=== PATIENT | male | born 1950 | race African-American/Black ===

== ENCOUNTER 2017-07-17 05:27 | Emergency (ER) | payer MEDICARE ==
[~2017-07-17] VITALS: Ht 167.6 cm; Wt 91.0 kg
[~2017-07-17 05:27] MED LIST: FOLIC ACID; OXYCOTIN
[2017-07-17] MEDS ORDERED: MORPHINE SULFATE 4 MG/ML CPJ (NOT FOR IM USE) IV STA (06:10)
[2017-07-17] MEDS ORDERED: SODIUM CHLORIDE 0.9% 1,000 ML IV ONE (06:10)
[2017-07-17] MEDS ORDERED: ONDANSETRON HCL 4MG/2ML VIAL IV STA (06:10)
[2017-07-17] MEDS ORDERED: KETOROLAC 30MG/ML VIAL IV STA (06:10)
[2017-07-17 06:42] LABS: HEMATOCRIT. 34.9 % (42.0-52.0); HEMOGLOBIN. 12.1 g/dL (14.0-18.0); MEAN CORPUSCULAR HEMOGLOBIN 27.5 pg (28.0-32.0); MEAN CORPUSCULAR VOLUME 79.1 fL (80.0-94.0); MEAN PLATELET VOLUME 9.5 fl (7.4-10.4); RED BLOOD CELL COUNT 4.42 mill/uL (4.7-6.1); RED CELL DISTRIBUTION WIDTH 14.6 % (11.6-14.6)
[2017-07-17 06:43] LABS: PLATELET 255 x1000/uL (130-400)
[2017-07-17 06:52] LABS: PROTHROMBIN TIME 10.6 sec (9.4-11.6)
[2017-07-17 07:00] LABS: CHLORIDE 111 mEq/L (98-107)
[2017-07-17 07:27] LABS: PLATELET ESTIMATE NORMAL
[2017-07-17 09:05] LABS: CLARITY URINE CLEAR (CLEAR); COLOR URINE YELLOW (YELLOW); KETONES URINE NEGATIVE (NEGATIVE); LEUKOCYTE ESTERASE URINE NEGATIVE (NEGATIVE); NITRITE URINE NEGATIVE (NEGATIVE); OCCULT BLOOD URINE NEGATIVE (NEGATIVE); PROTEIN URINE NEGATIVE (NEGATIVE); SPECIFIC GRAVITY URINE 1.015 (1.005-1.030)
[2017-07-17 11:03] VITALS: BP 125/72
== END 2017-07-17 11:11 | disposition home or self-care (01) ==
LOC: ER 05:27
DX: D57.00 Hb-SS disease with crisis, unspecified (principal); D64.9 Anemia, unspecified
CPT/HCPCS: 36415; 71045; 73130; 80053; 81003; 83880; 84484; 85025; 85044; 85610; 87804; 93005; 96361; 96374; 96375; 99285; C1893; J1885; J2270; J2405; J7030

== ENCOUNTER 2020-08-16 05:28 | Emergency (ER) | payer OTHER ==
[~2020-08-16] VITALS: Ht 167.6 cm; Wt 82.0 kg
[~2020-08-16 05:28] MED LIST changes: -FOLIC ACID; +FOLIC ACID PO
[2020-08-16] MEDS ORDERED: MORPHINE SULFATE 4 MG/ML CPJ (NOT FOR IM USE) IV STA (06:17)
[2020-08-16] MEDS ORDERED: SODIUM CHLORIDE 0.9% 1,000 ML IV ONE (06:30)
[2020-08-16 06:39] LABS: HEMATOCRIT. 31.1 % (42.0-52.0); HEMOGLOBIN. 10.9 g/dL (14.0-18.0); MEAN CORPUSCULAR HEMOGLOBIN 27.8 pg (28.0-32.0); MEAN CORPUSCULAR VOLUME 79.5 fL (80.0-94.0); RED BLOOD CELL COUNT 3.92 mill/uL (4.7-6.1); RED CELL DISTRIBUTION WIDTH 14.5 % (11.6-14.6)
[2020-08-16 06:45] LABS: CHLORIDE 106 mEq/L (98-107)
[2020-08-16 07:06] LABS: PLATELET ESTIMATE NORMAL
[2020-08-16 07:10] LABS: PLATELET 218 x1000/uL (130-400)
[2020-08-16] MEDS ORDERED: BENZ-16 PO (08:42)
[2020-08-16] MEDS ORDERED: GUAI-996 PO (08:42)
[2020-08-16 09:01] VITALS: BP 119/61
== END 2020-08-16 09:03 | disposition home or self-care (01) ==
LOC: ER 05:28
DX: D57.00 Hb-SS disease with crisis, unspecified (principal); R03.0 Elevated blood-pressure reading, without diagnosis of hypertension; E83.51 Hypocalcemia; E80.7 Disorder of bilirubin metabolism, unspecified
CPT/HCPCS: 36415; 71045; 80053; 83880; 84484; 85025; 85660; 93005; 96361; 96374; 99285; J2270; J7030

== ENCOUNTER 2020-08-18 13:59 | Inpatient (IN) | payer OTHER ==
[~2020-08-18] VITALS: Ht 167.6 cm; Wt 92.2 kg
[~2020-08-18 13:59] MED LIST changes: +BENZ-16 PO; +GUAI-996 PO
[2020-08-18 16:41] LABS: HEMATOCRIT. 31.9 % (42.0-52.0); HEMOGLOBIN. 10.9 g/dL (14.0-18.0); MEAN CORPUSCULAR HEMOGLOBIN 26.6 pg (28.0-32.0); MEAN CORPUSCULAR VOLUME 78.3 fL (80.0-94.0); MEAN PLATELET VOLUME 9.9 fl (7.4-10.4); PLATELET 218 x1000/uL (130-400); RED BLOOD CELL COUNT 4.08 mill/uL (4.7-6.1); RED CELL DISTRIBUTION WIDTH 15.2 % (11.6-14.6)
[2020-08-18 16:43] LABS: CHLORIDE 102 mEq/L (98-107)
[2020-08-18] MEDS ORDERED: ACETAMINOPHEN 325MG TABLET PO STA (17:06)
[2020-08-18 17:23] LABS: PLATELET ESTIMATE NORMAL
[2020-08-18 17:43] LABS: CLARITY URINE CLEAR (CLEAR); COLOR URINE DK YELLOW (YELLOW); KETONES URINE NEGATIVE (NEGATIVE); LEUKOCYTE ESTERASE URINE TRACE (NEGATIVE); NITRITE URINE NEGATIVE (NEGATIVE); OCCULT BLOOD URINE NEGATIVE (NEGATIVE); PROTEIN URINE TRACE (NEGATIVE); SPECIFIC GRAVITY URINE 1.014 (1.005-1.030); UROBILINOGEN URINE >=8.0 E.U./dL (0.2-1.0)
[2020-08-18 21:30] VITALS: BP 126/55
[2020-08-18] MEDS ORDERED: OMEP40CA12 PO (21:48)
[2020-08-18] MEDS ORDERED: GABA-532 PO (21:48)
[2020-08-19] VITALS: BP 138/69
[2020-08-19] MEDS: MORPHINE SULFATE 2 MG/ML CPJ (NOT FOR IM USE) IV PRN (00:44)
[2020-08-19] MEDS: SODIUM CHLORIDE 0.9% 1,000 ML IV SCH ×2 (00:45→14:20)
[2020-08-19 01:38] LABS: CREATINE KINASE 118 IU/L (39-308)
[2020-08-19 01:39] LABS: CREATINE KINASE MB FRACTION 1.1 ng/mL (0.5-3.6)
[2020-08-19 04:00] VITALS: BP 141/60
[2020-08-19 07:05] LABS: CHLORIDE 102 mEq/L (98-107)
[2020-08-19 07:07] LABS: HEMATOCRIT. 31.8 % (42.0-52.0); HEMOGLOBIN. 11.1 g/dL (14.0-18.0); MEAN CORPUSCULAR HEMOGLOBIN 26.9 pg (28.0-32.0); MEAN CORPUSCULAR VOLUME 77.1 fL (80.0-94.0); RED BLOOD CELL COUNT 4.13 mill/uL (4.7-6.1); RED CELL DISTRIBUTION WIDTH 15.2 % (11.6-14.6)
[2020-08-19 07:19] LABS: HDL CHOLESTEROL 52 mg/dL (40-59)
[2020-08-19 07:22] LABS: LDL CHOLESTEROL 60 mg/dL (5-100)
[2020-08-19 08:00] VITALS: BP 127/65
[2020-08-19 08:23] LABS: CREATINE KINASE 122 IU/L (39-308); CREATINE KINASE MB FRACTION < 1.0 ng/mL (0.5-3.6)
[2020-08-19] MEDS: HYDROCODONE/ACETAMINOPHEN 10/325MG TABLET PO PRN ×2 (08:40→18:35)
[2020-08-19] MEDS: LOSARTAN POTASSIUM 50 MG TABLET PO SCH (08:40)
[2020-08-19] MEDS: FERROUS SULFATE 325MG TABLET PO SCH (08:40)
[2020-08-19] MEDS: OMEPRAZOLE 20MG CAPSULE EXTENDED RELEASE PO SCH (08:41)
[2020-08-19 09:06] LABS: PLATELET 219 x1000/uL (130-400)
[2020-08-19 09:11] LABS: ATYPICAL LYMPHOCYTES 1
[2020-08-19 09:12] LABS: PLATELET ESTIMATE NORMAL
[2020-08-19 12:00] VITALS: BP 121/56
[2020-08-19 16:00] VITALS: BP 130/60
[2020-08-19] MEDS: BENZONATATE 100MG CAPSULE PO PRN (18:31)
[2020-08-19] MEDS ORDERED: METHYLPREDNISOLONE SOD SUCC 125 MG/2 ML VIAL IV NR (18:55)
[2020-08-19] MEDS ORDERED: ACETAMINOPHEN 325MG TABLET PO PRN (19:00)
[2020-08-19 20:00] VITALS: BP 124/56
[2020-08-19] MEDS: LEVOFLOXACIN 500MG PREMIX 100 ML IV SCH (20:14)
[2020-08-19] MEDS: ALBUTEROL 6.7GM HFA INHALER ORI SCH (21:15)
[2020-08-20] VITALS: BP 104/56
[2020-08-20] MEDS: ALBUTEROL 6.7GM HFA INHALER ORI SCH ×4 (02:39→21:19)
[2020-08-20] MEDS: METHYLPREDNISOLONE SOD SUCC 40 MG/ML VIAL IV SCH ×3 (03:20→18:01)
[2020-08-20] MEDS: SODIUM CHLORIDE 0.9% 1,000 ML IV SCH ×2 (03:24→16:12)
[2020-08-20 04:00] VITALS: BP 110/44
[2020-08-20 06:02] LABS: CHLORIDE 103 mEq/L (98-107)
[2020-08-20 06:16] LABS: HEMATOCRIT. 29.8 % (42.0-52.0); HEMOGLOBIN. 10.2 g/dL (14.0-18.0); MEAN CORPUSCULAR HEMOGLOBIN 26.9 pg (28.0-32.0); MEAN CORPUSCULAR VOLUME 78.3 fL (80.0-94.0); MEAN PLATELET VOLUME 9.9 fl (7.4-10.4); PLATELET 261 x1000/uL (130-400); RED BLOOD CELL COUNT 3.81 mill/uL (4.7-6.1); RED CELL DISTRIBUTION WIDTH 15.7 % (11.6-14.6)
[2020-08-20 08:00] VITALS: BP 125/65
[2020-08-20] MEDS: OMEPRAZOLE 20MG CAPSULE EXTENDED RELEASE PO SCH (08:56)
[2020-08-20] MEDS: FERROUS SULFATE 325MG TABLET PO SCH (08:59)
[2020-08-20] MEDS: LOSARTAN POTASSIUM 50 MG TABLET PO SCH (08:59)
[2020-08-20 12:00] VITALS: BP 130/63
[2020-08-20] MEDS: BENZONATATE 100MG CAPSULE PO PRN (13:55)
[2020-08-20 15:16] LABS: ATYPICAL LYMPHOCYTES 1; NUCLEATED RED BLOOD CELLS 1 /100 WBC; PLATELET ESTIMATE NORMAL
[2020-08-20 16:00] VITALS: BP 148/72
[2020-08-20 18:29] LABS: BG BASE EXCESS -3.6 mmol/L (-2.0-2.0); BG CARBOXYHEMOGLOBIN 0.3 % (0.5-1.5); BG DEOXYHEMOGLOBIN 4.9 % (0.0-5.0); BG HCO3 ACT 19.6 mmol/L (22.0-26.0); BG METHEMOGLOBIN 0.9 % (0.0-1.5); BG OXYHEMOGLOBIN 93.9 % (94.0-97.0); BG PCO2 29.5 mmHg (35.0-45.0); BG SAMPLE SITE RIGHT RADIAL; BG TOTAL HEMOGLOBIN 10.8 g/dL (12.0-18.0); BG VENT MODE ROOM AIR
[2020-08-20 20:00] VITALS: BP 152/69
[2020-08-20] MEDS: ZINC SULFATE 220 MG ( 50 ) CAPSULE PO SCH (21:18)
[2020-08-20] MEDS: DEXAMETHASONE 10 MG/ML VIAL IV SCH (21:18)
[2020-08-20] MEDS: ASCORBIC ACID 500 MG TABLET PO SCH (21:18)
[2020-08-20] MEDS: LEVOFLOXACIN 500MG PREMIX 100 ML IV SCH (21:19)
[2020-08-21] VITALS: BP 137/75
[2020-08-21] MEDS: ALBUTEROL 6.7GM HFA INHALER ORI SCH ×4 (02:05→22:51)
[2020-08-21 04:00] VITALS: BP 153/78
[2020-08-21] MEDS: SODIUM CHLORIDE 0.9% 1,000 ML IV SCH ×2 (05:31→22:50)
[2020-08-21 07:01] LABS: HEMATOCRIT. 30.9 % (42.0-52.0); HEMOGLOBIN. 10.3 g/dL (14.0-18.0); MEAN PLATELET VOLUME 9.2 fl (7.4-10.4); PLATELET 310 x1000/uL (130-400); RED BLOOD CELL COUNT 3.96 mill/uL (4.7-6.1); RED CELL DISTRIBUTION WIDTH 16.4 % (11.6-14.6)
[2020-08-21 07:18] LABS: CHLORIDE 106 mEq/L (98-107)
[2020-08-21 08:00] VITALS: BP 148/72
[2020-08-21] MEDS: ASCORBIC ACID 500 MG TABLET PO SCH ×2 (08:34→22:50)
[2020-08-21] MEDS: FERROUS SULFATE 325MG TABLET PO SCH (08:34)
[2020-08-21] MEDS: ZINC SULFATE 220 MG ( 50 ) CAPSULE PO SCH (08:34)
[2020-08-21] MEDS: OMEPRAZOLE 20MG CAPSULE EXTENDED RELEASE PO SCH (08:34)
[2020-08-21] MEDS: LOSARTAN POTASSIUM 50 MG TABLET PO SCH (08:35)
[2020-08-21 12:00] VITALS: BP 135/87
[2020-08-21 14:27] LABS: NUCLEATED RED BLOOD CELLS 3 /100 WBC; PLATELET ESTIMATE NORMAL
[2020-08-21 16:00] VITALS: BP 142/84
[2020-08-21 20:00] VITALS: BP 146/67
[2020-08-21] MEDS ORDERED: LEVO500T89 MT (20:22)
[2020-08-21] MEDS ORDERED: DEX6 MT (20:22)
[2020-08-21] MEDS ORDERED: APIX2.5T MT (20:22)
[2020-08-21] MEDS ORDERED: ALBU18HF2 IH (20:23)
[2020-08-21] MEDS: LEVOFLOXACIN 500MG PREMIX 100 ML IV SCH (22:49)
[2020-08-21] MEDS: DEXAMETHASONE 10 MG/ML VIAL IV SCH (22:50)
[2020-08-21] MEDS: MORPHINE SULFATE 2 MG/ML CPJ (NOT FOR IM USE) IV PRN (22:53)
[2020-08-22] VITALS: BP 151/72
[2020-08-22 04:00] VITALS: BP 118/52
[2020-08-22] MEDS: ALBUTEROL 6.7GM HFA INHALER ORI SCH ×2 (06:50→09:16)
[2020-08-22 08:00] VITALS: BP 133/69
[2020-08-22] MEDS: OMEPRAZOLE 20MG CAPSULE EXTENDED RELEASE PO SCH (09:13)
[2020-08-22] MEDS: ASCORBIC ACID 500 MG TABLET PO SCH (09:13)
[2020-08-22] MEDS: SODIUM CHLORIDE 0.9% 1,000 ML IV SCH (09:13)
[2020-08-22] MEDS: FERROUS SULFATE 325MG TABLET PO SCH (09:13)
[2020-08-22] MEDS: ZINC SULFATE 220 MG ( 50 ) CAPSULE PO SCH (09:13)
[2020-08-22] MEDS: LOSARTAN POTASSIUM 50 MG TABLET PO SCH (09:13)
[2020-08-22 12:00] VITALS: BP 148/70
[2020-08-22 12:02] VITALS: BP 148/70
[2020-08-22] MEDS ORDERED: FAMOTIDINE 20MG TABLET PO SCH (21:00)
== END 2020-08-22 13:16 | disposition home or self-care (01) | DRG 871 ==
LOC: ER 13:59 → 7WST 19:28 → ENRESERV 19:53
PROVIDERS: ADMIT Internal Medicine; ATTEND Internal Medicine
DX: A41.9 Sepsis, unspecified organism (principal); U07.1 COVID-19; J18.9 Pneumonia, unspecified organism; J44.1 Chronic obstructive pulmonary disease with (acute) exacerbation; J44.0 Chronic obstructive pulmonary disease with (acute) lower respiratory infection; D57.1 Sickle-cell disease without crisis; E11.9 Type 2 diabetes mellitus without complications; F17.200 Nicotine dependence, unspecified, uncomplicated; I10 Essential (primary) hypertension; Z79.899 Other long term (current) drug therapy; R07.89 Other chest pain
CPT/HCPCS: 36415; 36600; 71045; 80048; 80053; 80061; 81003; 82375; 82550; 82553; 82805; 83880; 84484; 85025; 85044; 85379; 93005; 93970; 94640; 99285; J1100; J1956; J2270; J2920; J2930; J7030; U0003